=== PATIENT | male | born 1980 | race Caucasian/White ===

== ENCOUNTER 2018-05-09 22:25 | Inpatient (IN) | payer OTHER ==
[~2018-05-09] VITALS: Ht 177.8 cm; Wt 93.0 kg
[~2018-05-09 22:25] MED LIST: BACTRIM DS TAB1 EACH PO; HYDROCODONE-AP1 EAC6 PO; KEFLEX500 MG PO; NOHOMEMEDICATIONS; NORCO 5-325 TA1 EACH PO; ZYVOX600 MG PO
[2018-05-09 22:58] VITALS: BP 137/91
[2018-05-09 23:38] LABS: ABSOLUTE BASOPHILS 0.1 thou/uL (0.0-0.2); ABSOLUTE EOSINOPHILS 0.2 thou/uL (0.0-0.7); ABSOLUTE LYMPHOCYTES 2.2 thou/uL (0.8-5.3); BASOPHILS 0.7 %; EOSINOPHILS 2.2 %; HEMATOCRIT 39.6 % (42.0-52.0); HEMOGLOBIN 13.6 gm/dL (14.0-18.0); LYMPHOCYTES 20.7 %; MCH 30.6 pg (26.0-34.0); MCHC 34.4 g/dL (28.0-37.0); MCV 88.9 fL (80.0-100.0); MONOCYTES 9.3 %; MPV 6.9 fl. (7.2-11.1); NUCLEATED RBCS 0 /100WBC; PLATELET COUNT* 295 thou/uL (150-400); POLYS 67.1 %; RBC 4.45 mil/uL (4.50-6.00); RDW-CV 13.1 % (10.5-14.5); WBC 10.4 thou/uL (4.0-11.0)
[2018-05-09 23:52] LABS: APTT 28.9 Seconds (25.0-31.3); INR 1.1; PROTIME 10.4 Seconds (9.20-11.50)
[2018-05-09 23:57] LABS: CALCIUM 8.9 mg/dL (8.5-10.1); CREATININE 1.1 mg/dL (0.6-1.3); POTASSIUM 3.6 mmol/L (3.5-5.1)
[2018-05-10 00:02] LABS: ALBUMIN 3.5 g/dL (3.4-5.0); TOTAL BILIRUBIN 0.3 mg/dL (<0.1-1.0); TOTAL PROTEIN 7.7 g/dL (6.4-8.2)
[2018-05-10 00:09] VITALS: BP 124/77
[2018-05-10 00:37] VITALS: BP 143/106
[2018-05-10 03:30] VITALS: BP 128/91
[2018-05-10 09:53] VITALS: BP 124/77
[2018-05-10 15:30] VITALS: BP 128/85
[2018-05-10 20:20] VITALS: BP 137/89
[2018-05-11 04:02] LABS: HEMATOCRIT 39.8 % (42.0-52.0); HEMOGLOBIN 13.7 gm/dL (14.0-18.0); MCH 30.4 pg (26.0-34.0); MCHC 34.3 g/dL (28.0-37.0); MCV 88.5 fL (80.0-100.0); MPV 6.8 fl. (7.2-11.1); RBC 4.5 mil/uL (4.50-6.00); WBC 7.8 thou/uL (4.0-11.0)
[2018-05-11 04:21] LABS: CALCIUM 8.5 mg/dL (8.5-10.1); POTASSIUM 4.2 mmol/L (3.5-5.1)
[2018-05-11 08:30] VITALS: BP 135/85; BP 136/94
--- NOTE | 2018-05-11 09:48 | CON ---
[address] [address] CONSULTATION Name: ALESSANDRA BUNN Room: [address] M.R.#: [id number] Admission: 05/09/18 Attend Phys: Dell Ortez MD Discharge: Date of : 80 Report #: [id number] THIS REPORT FOR: //name// CC: Dell Ortez [facility] physician/PCP DATE OF SERVICE: 05/10/2018 ATTENDING PHYSICIAN: Dell Ortez MD. REASON FOR EVALUATION: Right forearm skin and soft tissue infection with perhaps early subcutaneous abscess. HISTORY OF PRESENT ILLNESS: Chart reviewed, patient examined. This is a 37-year-old who believes he has not significant medical history. He believes he was bit on the right forearm roughly 3 days prior to admission. He states he felt something, although he did not clearly see an insect. He was outside and initially was not particularly concerned, however, over the course of the 24-hours prior to admission, had increasing pain, swelling, redness and experienced some chills as well. Denies any pulmonary or gastrointestinal related complaints. He was concerned about possible progressive infection. He was admitted to the hospital and placed empirically on vancomycin. Blood cultures are sterile thus far. ALLERGIES: None known. MEDICATIONS: Include enoxaparin, vancomycin, ondansetron as needed. PAST MEDICAL HISTORY: Bone fusion, left foot, 2015. SOCIAL HISTORY: Smokes a pack a day for the last 25 years, cigarettes. Occasional ethanol and had a history of methamphetamine use as well. FAMILY HISTORY: Noncontributory. REVIEW OF SYSTEMS: As above. PHYSICAL EXAMINATION: GENERAL: He is generally pleasant. He is in [id number] distress secondary to the right arm pain. He appears generally well nourished. VITAL SIGNS: Temperature 97.9, pulse 79, respirations 14, blood pressure 124/77. SKIN: Warm, dry, no rashes. HEENT: Unremarkable. NECK: Supple. LUNGS: [place] [id number] CONSULTATION Name: ALESSANDRA BUNN Room: [address] IN [facility].#: [id number] Admission: 05/09/18 Attend Phys: Dell Ortez MD Discharge: Date of : 80 Report #: [id number] HEART: Regular rate and rhythm without murmur. ABDOMEN: Soft, nontender, nondistended. EXTREMITIES: Right forearm has some moderate to marked inflammatory changes. There appears to be a puncture site with eschar. This was associated with some marginal induration, has a moderate amount of inflammation, tenderness. GENITOURINARY: Deferred. RECTAL: Deferred. LABORATORY DATA: Blood cultures sterile thus far. Electrolytes: Sodium 140, potassium 3.6, chloride 104, bicarbonate is 29, BUN and creatinine 16 and 1.1, anion gap of 7, glucose of 78, AST of 35, ALT of 72. Albumin of 3.5, total protein 7.7. Estimated GFR of 75. Lactic acid 1.0. CBC: White count of 10.4, H and H 13.6 and 39.6, platelets of 295. Differential unremarkable. ASSESSMENT: Right forearm skin and soft tissue infection with early abscess. I suspect a staph or strep etiology. We will continue the vancomycin, see if it can localize. We will utilize a warm moist heat, elevation, at some point probably add compression. If indeed localizes, we will have Surgery evaluate. It may be beneficial to drain it if that is the case. At this point, he is not overtly toxic. <ELECTRONICALLY SIGNED> By: Leroy Parsons MD 05/11/18 [id number] Parsons MD /nt
[2018-05-11 16:00] VITALS: BP 140/72
[2018-05-11 20:00] VITALS: BP 136/94
[2018-05-12 04:18] LABS: ALBUMIN 2.9 g/dL (3.4-5.0); CALCIUM 8.3 mg/dL (8.5-10.1); CREATININE 0.9 mg/dL (0.6-1.3); POTASSIUM 4.5 mmol/L (3.5-5.1); TOTAL BILIRUBIN 0.2 mg/dL (<0.1-1.0); TOTAL PROTEIN 6.5 g/dL (6.4-8.2)
[2018-05-12 09:24] VITALS: BP 116/66
[2018-05-12 16:00] VITALS: BP 107/54
[2018-05-12 20:30] VITALS: BP 118/77
[2018-05-13 04:04] LABS: HEMATOCRIT 44.1 % (42.0-52.0); HEMOGLOBIN 15.2 gm/dL (14.0-18.0); MCH 30.4 pg (26.0-34.0); MCHC 34.5 g/dL (28.0-37.0); MCV 88.3 fL (80.0-100.0); MPV 6.8 fl. (7.2-11.1); WBC 6.8 thou/uL (4.0-11.0)
[2018-05-13 04:34] LABS: ALBUMIN 3.3 g/dL (3.4-5.0); CREATININE 0.9 mg/dL (0.6-1.3); POTASSIUM 4.6 mmol/L (3.5-5.1); TOTAL BILIRUBIN 0.2 mg/dL (<0.1-1.0); TOTAL PROTEIN 7.3 g/dL (6.4-8.2)
[2018-05-13 06:06] LABS: HEPATITIS B SURFACE AG Negative (Negative)
[2018-05-13 15:47] VITALS: BP 118/71
[2018-05-13 20:00] VITALS: BP 99/70
[2018-05-14 04:05] LABS: HEMATOCRIT 43.7 % (42.0-52.0); HEMOGLOBIN 14.9 gm/dL (14.0-18.0); MCHC 34.2 g/dL (28.0-37.0); MCV 87.7 fL (80.0-100.0); MPV 6.7 fl. (7.2-11.1); RBC 4.98 mil/uL (4.50-6.00); RDW-CV 12.9 % (10.5-14.5); WBC 6.9 thou/uL (4.0-11.0)
[2018-05-14 09:39] VITALS: BP 100/64
== END 2018-05-14 12:30 | disposition left against medical advice (07) | DRG 581 ==
LOC: M.ERS 22:25 → M.TBA-ER 23:26 → M.ORTHSURG 23:26 → M.ERS 05-10 00:10 → M.ORTHSURG 05-10 00:21
PROVIDERS: Internal Medicine; Nurse Practitioner Family; Surgery; ADMIT Internal Medicine
PROC: 0J9J0ZZ Drainage of Right Hand Subcutaneous Tissue and Fascia, Open Approach (ICD-10-PCS; principal; 2018-05-12)
DX: L03.113 Cellulitis of right upper limb (principal); L02.413 Cutaneous abscess of right upper limb; S60.561A Insect bite (nonvenomous) of right hand, initial encounter; F17.210 Nicotine dependence, cigarettes, uncomplicated; W57.XXXA Bitten or stung by nonvenomous insect and other nonvenomous arthropods, initial encounter; Z82.49 Family history of ischemic heart disease and other diseases of the circulatory system; Z86.14 Personal history of Methicillin resistant Staphylococcus aureus infection; Z98.890 Other specified postprocedural states; Y93.89 Activity, other specified; Y92.89 Other specified places as the place of occurrence of the external cause; Y99.8 Other external cause status; Z79.2 Long term (current) use of antibiotics; Z79.899 Other long term (current) drug therapy